=== PATIENT | female | born 1970 | race Caucasian/White ===

== ENCOUNTER 2017-07-30 15:37 | Emergency (ER) | payer MEDICAID ==
[~2017-07-30] VITALS: Ht 160 cm; Wt 70.3 kg
[~2017-07-30 15:37] MED LIST: AMBIEN 10 MG TA10 MG PO; AMBIEN 5 MG TABL5 M1 PO; BACTRIM DS TAB1 EACH PO; CEPHALEXIN 500500 M3 PO; CLOBETASOL PRO0.5 GM MC; DESYREL300 MG PO; DOXYCYCLINE 10100 M1 PO; EFFEXOR 5050 MG/1 T1 PO; EFFEXOR XR150 MG; FLAGYL500 MG PO; HUMIRA40 MG/0.1 SQ; HYDROCODON-ACE1 EAC7 PO; HYDROCODONE-AP1 EAC6 PO; KEFLEX250 MG PO; LITHIUM CARBON300 M3 PO; PENICILLIN VK500 MG PO; PROAIR RESPICL90 MCG IH; SEROQUEL 50 MG50 MG PO; SEROQUEL200 MG PO; TIGAN300 MG PO; TRAZODONE 150150 M1 PO; VALIUM5 MG PO; XANAX 0.25 MG0.25 MG PO; ZANTAC 150MG T150 M1 PO
[2017-07-30 16:54] LABS: ABSOLUTE EOSINOPHILS 0.1 thou/uL (0.0-0.7); ABSOLUTE LYMPHOCYTES 1.9 thou/uL (0.8-5.3); ABSOLUTE MONOCYTES 0.6 thou/uL (0.0-1.2); ABSOLUTE NEUTROPHILS 6.9 thou/uL (1.6-8.1); BASOPHILS 0.4 %; EOSINOPHILS 0.6 %; HEMATOCRIT 42.1 % (37.0-47.0); HEMOGLOBIN 13.8 gm/dL (12.0-15.0); LYMPHOCYTES 19.7 %; MCH 30.7 pg (26.0-34.0); MCHC 32.9 g/dL (28.0-37.0); MCV 93.6 fL (80.0-100.0); MONOCYTES 6.4 %; MPV 8.2 fl. (7.2-11.1); NUCLEATED RBCS 0 /100WBC; PLATELET COUNT* 260 thou/uL (150-400); POLYS 72.9 %; RDW-CV 13.4 % (10.5-14.5); WBC 9.5 thou/uL (4.0-11.0)
[2017-07-30 16:58] LABS: URINE BILIRUBIN NEGATIVE (Negative); URINE BLOOD NEGATIVE (Negative); URINE CLARITY CLEAR; URINE COLOR YELLOW; URINE GLUCOSE-RANDOM NEGATIVE (Negative); URINE KETONES NEGATIVE (Negative); URINE LEUKOCYTES-REFLEX NEGATIVE (Negative); URINE NITRITE-REFLEX NEGATIVE (Negative); URINE PROTEIN NEGATIVE (Negative); URINE SPECIFIC GRAVITY <= 1.005 (1.005-1.030); URINE UROBILINOGEN 0.2 E.U./dl (0.2-1.0)
[2017-07-30 17:02] LABS: CALCIUM 9.2 mg/dL (8.5-10.1); POTASSIUM 4.2 mmol/L (3.5-5.1)
[2017-07-30 17:06] LABS: AMP/METHAMP Negative (Negative); BARBITURATES Negative (Negative); BENZODIAZEPINES Negative (Negative); COCAINE Negative (Negative); METHADONE Negative (Negative); OPIATES Negative (Negative); PCP Negative (Negative); THC Negative (Negative)
[2017-07-30 17:07] LABS: ALBUMIN 3.7 g/dL (3.4-5.0); TOTAL BILIRUBIN 0.3 mg/dL (<0.1-1.0); TOTAL PROTEIN 7.1 g/dL (6.4-8.2)
[2017-07-30 17:34] VITALS: BP 120/81
== END 2017-07-30 17:35 | disposition home or self-care (01) ==
LOC: M.ERS 15:37
PROVIDERS: Personal Emergency Response Attendant
DX: Z00.8 Encounter for other general examination (principal); F17.210 Nicotine dependence, cigarettes, uncomplicated

== ENCOUNTER 2017-08-14 12:58 | Emergency (ER) | payer MEDICAID ==
[~2017-08-14] VITALS: Ht 162.6 cm; Wt 70.3 kg
[2017-08-14] MEDS ORDERED: HYDROCODONE-AP1 EAC6 PO (13:17)
[2017-08-14] MEDS ORDERED: CLINDA (13:17)
[2017-08-14] MEDS ORDERED: MELATONIN3 MG PO (13:23)
[2017-08-14] MEDS ORDERED: CLEOCIN HCL150 MG PO (13:24)
[2017-08-14] MEDS ORDERED: PAXIL10 MG PO (13:24)
[2017-08-14 13:55] LABS: URINE BILIRUBIN NEGATIVE (Negative); URINE BLOOD NEGATIVE (Negative); URINE CLARITY CLEAR; URINE COLOR YELLOW; URINE GLUCOSE-RANDOM NEGATIVE (Negative); URINE KETONES NEGATIVE (Negative); URINE LEUKOCYTES-REFLEX NEGATIVE (Negative); URINE NITRITE-REFLEX NEGATIVE (Negative); URINE PROTEIN NEGATIVE (Negative); URINE UROBILINOGEN 0.2 E.U./dl (0.2-1.0)
[2017-08-14] MEDS ORDERED: PENICILLIN VK500 MG PO (14:58)
[2017-08-14] MEDS ORDERED: HYDROCODON-ACE1 EAC7 PO (14:58)
[2017-08-14 15:12] VITALS: BP 121/80
== END 2017-08-14 15:12 | disposition home or self-care (01) ==
LOC: M.ERS 12:58
PROVIDERS: Emergency Medicine
DX: K02.9 Dental caries, unspecified (principal); R10.32 Left lower quadrant pain; F32.9 Major depressive disorder, single episode, unspecified; F17.210 Nicotine dependence, cigarettes, uncomplicated

== ENCOUNTER 2017-08-28 19:20 | Emergency (ER) | payer MEDICAID ==
[~2017-08-28] VITALS: Ht 165.1 cm; Wt 70.3 kg
[~2017-08-28 19:20] MED LIST changes: +CLEOCIN HCL150 MG PO; +CLINDA; +MELATONIN3 MG PO; +PAXIL10 MG PO
[2017-08-28 19:48] LABS: URINE BILIRUBIN NEGATIVE (Negative); URINE BLOOD TRACE (Negative); URINE CLARITY CLEAR; URINE COLOR YELLOW; URINE GLUCOSE-RANDOM NEGATIVE (Negative); URINE KETONES NEGATIVE (Negative); URINE LEUKOCYTES-REFLEX NEGATIVE (Negative); URINE NITRITE-REFLEX NEGATIVE (Negative); URINE PROTEIN NEGATIVE (Negative); URINE UROBILINOGEN 0.2 E.U./dl (0.2-1.0)
[2017-08-28 19:56] LABS: AMP/METHAMP Negative (Negative); BARBITURATES Negative (Negative); BENZODIAZEPINES Negative (Negative); COCAINE Negative (Negative); METHADONE Negative (Negative); OPIATES Negative (Negative); PCP Negative (Negative); THC Negative (Negative)
[2017-08-28 20:03] LABS: ABSOLUTE BASOPHILS 0.1 thou/uL (0.0-0.2); ABSOLUTE MONOCYTES 0.7 thou/uL (0.0-1.2); ABSOLUTE NEUTROPHILS 8.5 thou/uL (1.6-8.1); BASOPHILS 0.8 %; EOSINOPHILS 0.4 %; HEMOGLOBIN 14.6 gm/dL (12.0-15.0); LYMPHOCYTES 17.7 %; MCHC 33.2 g/dL (28.0-37.0); MCV 93.5 fL (80.0-100.0); MPV 8.1 fl. (7.2-11.1); NUCLEATED RBCS 0 /100WBC; PLATELET COUNT* 244 thou/uL (150-400); POLYS 75.1 %; RBC 4.71 mil/uL (4.20-5.00); RDW-CV 13.6 % (10.5-14.5); WBC 11.3 thou/uL (4.0-11.0)
[2017-08-28 20:10] LABS: POTASSIUM 3.6 mmol/L (3.5-5.1)
[2017-08-28 20:15] LABS: ALBUMIN 4.1 g/dL (3.4-5.0); TOTAL BILIRUBIN 0.3 mg/dL (<0.1-1.0); TOTAL PROTEIN 7.3 g/dL (6.4-8.2)
[2017-08-28 20:23] LABS: SALICYLATE 3.5 mg/dL (2.8-20.0)
[2017-08-28 20:24] LABS: ACETAMINOPHEN < 2 ug/mL (10-30); ALCOHOL < 10 mg/dL (<10)
[2017-08-29 19:10] VITALS: BP 121/67
== END 2017-08-29 19:10 ==
LOC: M.ERS 19:20
PROVIDERS: Emergency Medicine
DX: R45.851 Suicidal ideations (principal); F32.9 Major depressive disorder, single episode, unspecified; F17.210 Nicotine dependence, cigarettes, uncomplicated

== ENCOUNTER 2017-10-25 20:26 | Emergency (ER) | payer MEDICAID ==
[~2017-10-25] VITALS: Ht 162.6 cm; Wt 68.0 kg
[2017-10-25] MEDS ORDERED: NAPROSYN500 MG PO (20:37)
[2017-10-25] MEDS ORDERED: TRAZODONE 150150 M1 PO ×2 (20:37→22:35)
[2017-10-25 21:42] LABS: ABSOLUTE LYMPHOCYTES 2.2 thou/uL (0.8-5.3); ABSOLUTE MONOCYTES 0.9 thou/uL (0.0-1.2); ABSOLUTE NEUTROPHILS 7.3 thou/uL (1.6-8.1); BASOPHILS 0.3 %; EOSINOPHILS 0.3 %; HEMATOCRIT 41.1 % (37.0-47.0); HEMOGLOBIN 13.6 gm/dL (12.0-15.0); LYMPHOCYTES 20.8 %; MCH 31.6 pg (26.0-34.0); MCHC 33.1 g/dL (28.0-37.0); MCV 95.2 fL (80.0-100.0); MONOCYTES 8.2 %; MPV 8.4 fl. (7.2-11.1); NUCLEATED RBCS 0 /100WBC; PLATELET COUNT* 260 thou/uL (150-400); POLYS 70.4 %; RBC 4.31 mil/uL (4.20-5.00); WBC 10.4 thou/uL (4.0-11.0)
[2017-10-25 21:45] LABS: ANION GAP 6 mmol/L (7-16); BUN 9 mg/dL (7-18); CALCIUM 8.9 mg/dL (8.5-10.1); CHLORIDE 106 mmol/L (98-107); CO2 29 mmol/L (21-32); CREATININE 0.9 mg/dL (0.6-1.3); GLUCOSE 91 mg/dL (70-99); POTASSIUM 3.4 mmol/L (3.5-5.1); SODIUM 141 mmol/L (136-145)
[2017-10-25 21:52] LABS: ALBUMIN 3.7 g/dL (3.4-5.0); ALKALINE PHOSPHATASE 62 U/L (46-116); SGOT 14 U/L (15-37); SGPT 19 U/L (30-65); TOTAL BILIRUBIN 0.4 mg/dL (<0.1-1.0); TOTAL PROTEIN 7.2 g/dL (6.4-8.2); TROPONIN-I LEVEL <0.06 ng/mL (<0.06)
[2017-10-25 22:26] LABS: URINE BILIRUBIN NEGATIVE (Negative); URINE BLOOD NEGATIVE (Negative); URINE CLARITY CLEAR; URINE COLOR YELLOW; URINE GLUCOSE-RANDOM NEGATIVE (Negative); URINE KETONES NEGATIVE (Negative); URINE LEUKOCYTES-REFLEX NEGATIVE (Negative); URINE NITRITE-REFLEX NEGATIVE (Negative); URINE PROTEIN NEGATIVE (Negative); URINE SPECIFIC GRAVITY >= 1.030 (1.005-1.030); URINE UROBILINOGEN 0.2 E.U./dl (0.2-1.0)
[2017-10-25] MEDS ORDERED: GABAPENTIN 100100 MG PO (22:35)
[2017-10-25 22:38] LABS: AMP/METHAMP Negative (Negative); BARBITURATES Negative (Negative); BENZODIAZEPINES Negative (Negative); COCAINE Negative (Negative); METHADONE Negative (Negative); OPIATES Negative (Negative); PCP Negative (Negative); THC Negative (Negative)
[2017-10-25 23:16] VITALS: BP 121/71
== END 2017-10-25 23:17 | disposition home or self-care (01) ==
LOC: M.ERS 20:26
PROVIDERS: Emergency Medicine
DX: G89.29 Other chronic pain (principal); M54.5 Low back pain; G47.00 Insomnia, unspecified; F17.210 Nicotine dependence, cigarettes, uncomplicated; F32.9 Major depressive disorder, single episode, unspecified

== ENCOUNTER 2017-11-04 16:29 | Emergency (ER) | payer OTHER, MEDICAID ==
[~2017-11-04] VITALS: Ht 160 cm; Wt 63.5 kg
[~2017-11-04 16:29] MED LIST changes: +GABAPENTIN 100100 MG PO; +NAPROSYN500 MG PO
[2017-11-04] MEDS ORDERED: BACTRIM DS TAB1 EACH PO (17:01)
[2017-11-04] MEDS ORDERED: IBUPROFEN 600600 M1 PO (17:01)
[2017-11-04 17:09] VITALS: BP 136/90
== END 2017-11-04 17:10 | disposition home or self-care (01) ==
LOC: M.ERS 16:29
DX: L08.0 Pyoderma (principal); J06.9 Acute upper respiratory infection, unspecified; F17.210 Nicotine dependence, cigarettes, uncomplicated; F32.9 Major depressive disorder, single episode, unspecified

== ENCOUNTER 2017-11-26 17:31 | Emergency (ER) | payer OTHER, MEDICAID ==
[~2017-11-26] VITALS: Ht 160 cm; Wt 65.8 kg
[~2017-11-26 17:31] MED LIST changes: +IBUPROFEN 600600 M1 PO
[2017-11-26] MEDS ORDERED: LIDOCAINE VISC100 ML PO (18:03)
[2017-11-26] MEDS ORDERED: AMOXICILLIN 50500 MG PO (18:03)
[2017-11-26 18:34] VITALS: BP 126/80
== END 2017-11-26 18:34 | disposition home or self-care (01) ==
LOC: M.ERS 17:31
DX: K02.9 Dental caries, unspecified (principal); F32.9 Major depressive disorder, single episode, unspecified; F17.210 Nicotine dependence, cigarettes, uncomplicated